=== PATIENT | female | born 1935 | race Hispanic/Latino ===

== ENCOUNTER 2019-05-09 09:03 | Observation (INO) | payer MEDICARE ==
[~2019-05-09] VITALS: Ht 154.9 cm; Wt 71.2 kg
[~2019-05-09 09:03] MED LIST: ACTOS15 MG PO; AMLODIPINE10 MG PO; ASPIRIN81 MG OR; BENAZEPRIL20 M1 PO; CRESTOR40 MG PO; FERROUS SULF325 M2 OR; FLEXERIL OR; HYDROXYZ PAM50 MG PO; ISOSORB MONO30 MG PO; KLOR-CON 1010 ME1 OR; LASIX20 MG OR; LEVOTHYROXIN112 MC1 PO; MELOXICAM7.5 MG PO; PLAVIX75 MG PO; PROAIR HFA IN; RANITIDINE150 MG PO; ULTRAM50 MG OR; VITAMIN D1000 UNIT OR
--- NOTE | 2019-05-09 09:15 | NUR ---
PT TO ROOM VIA WC PT STATES THAT HER LEFT KNEE BEGAN SWELLING YESTERDAY- NO INJURY STATED. PT STATES HAVING SOME SOB UPON EXERTION AT THIS TIME. PT DENIES ANY C/P, N/V OR WEAKNESS. PT IS AOX4. FAMILY STATES SOB UPON EXERTION HAS BEEN INCREASING OVER TIME.
[2019-05-09 10:06] LABS: IMMATURE GRANULOCYTES 0.2 % (0.0-5.0); MEAN CELL VOLUME 93.7 fL CALC (80.0-100.0); MEAN CORPUSCULAR HGB 29.2 pG CALC (26.0-32.0); MEAN CORPUSCULAR HGB CONC 31.2 g/L CALC (32.0-36.0); NEUT# 3.04 thou/uL (2.00-7.15); RED BLOOD COUNT 3.63 mill/uL (4.20-5.60); RED CELL DISTRI WIDTH 13.8 % (11.5-15.5)
[2019-05-09 10:10] LABS: HEMOGLOBIN 10.6 g/dl (12.0-16.0)
--- NOTE | 2019-05-09 10:15 | NUR ---
PT RESTING ON STRETCHER AWAITING RESULTS AT THIS TIME.;
[2019-05-09 10:23] LABS: ANION GAP 10 (6-22 (CALC)); BUN 13 mg/dL (8-23); BUN/CREATININE RATIO 25 (12-20 (CALC)); CARBON DIOXIDE 33 mmol/l (22-30); CHLORIDE 103 mmol/l (95-108); CREATININE 0.5 mg/dL (0.5-1.0); GFR > 60 ML/MIN (>=60 (CALC)); GFR FOR AFR.AMER. > 60 ML/MIN (>=60 (CALC)); POTASSIUM 4.2 mmol/l (3.5-5.1); SODIUM 141 mmol/l (137-146)
[2019-05-09 10:24] LABS: ALBUMIN 4.2 g/dL (3.2-5.0); BILIRUBIN, TOTAL 0.5 mg/dL (0.0-1.4); TOTAL PROTEIN 7.8 g/dL (6.3-8.2)
--- NOTE | 2019-05-09 11:05 | NUR ---
PT STATES THAT SHE IS HAVING CHEST TIGHTNESS WITH MD LALO NOTIFIED AND AT BEDSIDE
[2019-05-09] MEDS ORDERED: LISINOPRIL10 MG PO (11:25)
--- NOTE | 2019-05-09 12:00 | NUR ---
REPORT ATTEMPTED TO MS2- RN WILL RETURN CALL
--- NOTE | 2019-05-09 12:23 | NUR ---
MS2 RERTURNED CALL FOR REPORT. AMBIKA BURRELL ACCPETED PT
--- NOTE | 2019-05-09 12:26 | NUR ---
PT IS UNABLE TO RECONCILE MEDICATIONS AND LIST FROM PHARMACY IS NOT CORRECT. DR DOMINGUEZ CONTACTED AND WAS INFORMED THAT LIST IN COMPUTER IS NOT CORRECT. AMBIKA RN NOTIFIED WELL. DAUGHTER WILL BE BRINGING IN CURRENT LIST OF MEDICATIONS.
--- NOTE | 2019-05-09 12:30 | NUR ---
Admission Note Report Given to: GILBERTO BURRELL Transported by: Wheelchair X Stretcher Transported with: X Nurse Transporter X Patent IV O2 X Manager System [place] [facility] [place]
--- NOTE | 2019-05-09 12:45 | NUR ---
PT ARRIVES TO ROOM 277 VIA STRETCHER FROM ER. PT IS AWAKE, ALERT, ORIENTED X 3. PT HAS LEFT KNEE DISCOMFORT. NO COMPLAINT OF CHEST PAIN OR SHORTNESS OF BREATH. DAUGHTER AT BEDSIDE.
[2019-05-09 12:56] VITALS: BP 170/78
--- NOTE | 2019-05-09 14:40 | NUR ---
ICE PACK PROVIDED TO LEFT KNEE PER SWELLING AND PAIN. NO COMPLAINTS OF CHEST PAIN OR SHORTNESS OF BREATH.
[2019-05-09 15:34] VITALS: BP 136/78
--- NOTE | 2019-05-09 16:22 | NUR ---
PT REMAINS BEFORE, NO COMPLAINTS OF CHEST PAIN OR SHORTNESS OF BREATH. FAMILY AT BEDSIDE PROVIDING SUPPORT.
--- NOTE | 2019-05-09 19:08 | NUR ---
REPORT RECEIVED FROM [facility]. PT RESTING IN BED, FAMILY AT BEDSIDE. NO S/S OF DISTRESS AT THIS TIME. WILL CONTINUE TO MONITOR.
[2019-05-09 20:00] VITALS: BP 133/71
--- NOTE | 2019-05-09 21:15 | NUR ---
PT RESTING IN BED. FAMILY AT BEDSIDE. PT IS ALERT AND ORIENTED, RESPIRATIONS ARE SHALLOW ON RA. LUNGS SOUND DIMINISHED. PEDAL PULSES WEAK. #20 LAC PATENT AND APPEARS HEALTHY. TELE IN PLACE. CALL ISRAEL WITHIN REACH WILL CONTINUE TO MONITOR.
[2019-05-10 00:20] VITALS: BP 147/70
--- NOTE | 2019-05-10 01:15 | NUR ---
PT RESTING IN BED WITH EYES CLOSED. NO S/S OF DISTRESS AT THIS TIME, WILL CONTINUE TO MONITOR.
[2019-05-10 04:07] VITALS: BP 144/71
--- NOTE | 2019-05-10 04:13 | NUR ---
PT RESTING IN BED. RESPIRATIONS EVEN AND UNLABORED ON RA. NO S/S OF DISTRESS AT THIS TIME. SAFETY PRECAUTIONS IN PLACE. WILL CONTINUE TO MONITOR.
[2019-05-10 06:06] LABS: MAGNESIUM 2.2 mg/dL (1.6-2.3)
--- NOTE | 2019-05-10 07:00 | NUR ---
SHIFT CHANGE REPORT, PT AWAKE ALERT AND ORIENTED X 3, DENIES PAIN AT THIS TIME BUT [id number] SHE HAS LEFT KNEE PAIN PERIODICALLY, TELE MONITOR IN PLACE, IV SITE FREE OF S&S INFECTION/INFILTRATION, FAMILY AT BEDSIDE, CALL [place]RAEL IN REACH.
[2019-05-10 09:01] VITALS: BP 147/78
[2019-05-10] MEDS ORDERED: ATORVASTATIN CA80 MG PO (10:31)
[2019-05-10] MEDS ORDERED: PANTOPRAZOLE SO40 M1 PO (10:34)
[2019-05-10] MEDS ORDERED: LISINOPRIL10 MG PO (10:35)
[2019-05-10] MEDS ORDERED: RANITIDINE150 M1 PO (10:36)
[2019-05-10] MEDS ORDERED: TRIAMCINOLON0.11 EX (10:38)
[2019-05-10] MEDS ORDERED: LEVO-T112 MCG PO (10:40)
[2019-05-10] MEDS ORDERED: PIOGLITAZONE HY15 MG PO (10:41)
[2019-05-10] MEDS ORDERED: ASPIRIN81 MG PO (10:41)
[2019-05-10] MEDS ORDERED: CYANOCOBAL1000 MCG/M (10:43)
[2019-05-10] MEDS ORDERED: PROAIR HFA108 MCG/AC PO (10:49)
[2019-05-10 11:30] VITALS: BP 126/69
--- NOTE | 2019-05-10 12:23 | NUR ---
SITTING UP IN RECLINER, ATE MEAL, NO NEW COMPLAINS, CALL ISRAEL IN REACH AND FAMILY IN ROOM.
[2019-05-10] MEDS ORDERED: LASIX 20 MG TAB20 MG PO (13:44)
--- NOTE | 2019-05-10 15:42 | NUR ---
Discharge instructions given. Patient verbalizes understanding of same. Discharged in stable condition via Wheelchair to Home with family. All belongings sent with pt.
== END 2019-05-10 15:30 | disposition home or self-care (01) ==
LOC: ED 09:03 → ED-I 11:09 → ED 11:26 → MS2 11:27
PROVIDERS: Family Medicine; ADMIT Internal Medicine; ATTEND Internal Medicine
DX: R07.9 Chest pain, unspecified (principal); M25.562 Pain in left knee; I10 Essential (primary) hypertension; E11.9 Type 2 diabetes mellitus without complications; M17.12 Unilateral primary osteoarthritis, left knee; I25.10 Atherosclerotic heart disease of native coronary artery without angina pectoris; Z95.1 Presence of aortocoronary bypass graft